=== PATIENT | male | born 1960 | race Caucasian/White ===

== ENCOUNTER → 2017-01-02 | Outpatient (CLI) | payer BC ==
--- NOTE | 2017-01-02 14:09 | ST Modified Barium Swallow ---
Recommendation - Recommendations Recommendations: 1) DIET: Recommend continue current diet. 2) STRATEGIES: dry swallow after liquids, when eating puree consistency alternate bites and sips. SUMMARY: No penetration or aspiraton observed during the study. Pt presents with a mild oropharyngeal dysphagia characterized by weak base of tongue resulting in trace-mild residuals of puree in valleculae and pooling of thin liquids from valleculae to pyriforms. Pt observed to present with throat clear on thin liquids, possibly due to thin residuals in pyriforms. Residuals of thin in pyriforms observed to clear with dry swallow. Residuals of puree in vallecuale observed to clear with alternating bites and sips. Pt provided with swallowing exercise home program. Medical Diagnoses - Medical Diagnoses Medical Diagnosis Description & ICD-10 Code(s): r13.10 Other Medical Diagnoses/Co-Morbidities: bronchitis, reflux - ICD-10 Tx Diagnosis Coding (1) Dysphagia, oropharyngeal phase ICD-10 Code(s): R13.12 - DYSPHAGIA, OROPHARYNGEAL PHASE ST Modified Barium Swallow - General Date: 01/02/17 Referring Physician: Dr Gil Risks/Precautions: None Date of Onset: 08/04/16 Reason for Referral: dysphagia - History History obtained from: Patient -: Medical - Pt reports coughing throughout the day, states initially felt it was due to "sinus issues" however reports had "polyps in sinus and nose removed " and couging did not go away. Pt also states "my lungs are full of congestion" which began in July of 2016. Pt reports bronchitis which he feels has not gone away. Pt states most recent PNA was over 4 years ago. Pt also states any coughing with PO intake "stopped 4 years ago". Pt does report globus sensation in upper chest and reports is on reflux medications. Pt states began reflux medications 6-7 years ago-states prior to meds he would wake up at night to "throw up acid." Pt reports follow a GI in [place]. Medications: pt stated did not have list with him, pt recalls; "blood pressure pill, thyroid pill, sinus medication, reflux medication, metformin, cholesterol medication." Allergies: none reported - Functional Status Prior Functional Status: INDEPENDENT: feeding Current Functional Limitations: feeding - Subjective Patient/caregiver goal(s): safe swallow, r/o aspiration Cognitive-Linguistic Function: WNL Speech Intelligibility: WNL Current Nutritional Means: PO Current PO diet: Regular Current symptoms: Coughing, c/o Globus sensation Pain: 0/5 - Objective Assessment: Upright, Left Lateral - Food Trials Used Food trials used: Thin liquids, Pureed, Regular The patient: Was Able to Self Feed - Oral-Motor Skills Velo-pharyngeal function: Unremarkable Laryngeal Function: Volitional Cough, Volitional Swallow - Assessment Oral prep: Normal Labial closure: Adequate Leakage: None Mastication: Adequate Lingual Movement: Normal Oral stage: Normal for this Procedure - Pharyngeal Stage Initiation of Pharyngeal Stage Reflex: Normal Decreased laryngeal elevation: No Reduced Velopharyngeal Closure: no Reduced pressure generation: Yes - mild reduced tongue-based retraction: Yes - mild Pre-swallow pooling in valleculae: None Pre-Swallow pooling in pyriforms: None Reduced Thyro-Hyoid approximation: No Reduced epiglottic excursion: No Reduced pharyngeal peristalsis/contraction: No Post-swallow residulas vallecular: Mild - trace-mild on puree, pooling of thin Post-Swallow residuals in pyriforms: Mild - pooling of thin - Fall Risk Assessment Medications/Conditions that increase fall risks include: Antidepressants, sedatives, anti-arrhythmic, diuretic, benzodiazipenes, neuroleptics. BP regulation problems, cardiac problems, balance or gait deficits, neurological problems. Is patient considered at risk for falls: no Fall Risk Actions Taken: No action needed - Behavioral Observations During evaluation process patient: was pleasant, was cooperative, able to answer questions, provided medical history - Treatment / Educational Needs: Treatment/Education Needs: Treatment consisted of patient education on the role of the Speech Pathologist. Patient's plan of care and golas were communicated as well as scheduling and attendance policies. Recommendations for initial home program were shared. Patient demonstrated understanding and verbalized agreement. Initial home program recommendations: Pt provided with writen and verbal education on dysphagia, reflux precautions, recommendations from study, and swallowing exercises. - Impression/Summary Laryngeal Penetration: No Tracheal Aspiration: no Patient presents with: Oral-Pharyngeal dysph. - mild Risk of Aspiration: Mild - Recommendations NPO: no Solid diet recommendations: Regular Liquid Diet Modification: Thin Pt/Family education and followup with MD: Yes Recommended techniques: Fully Upright During Meal, Alternate Bites/Sips - with purees ; dry swallow after liquids Supervision: Independent Information, Precautions and Recommendations: Patient (Written), Patient (Verbal ) - Time Total Time: 25 - Plan of Care Strategies to optimize patient understanding include:: ongoing assessment of educational needs, implementation of educational strategies, and re-education. - - -: Thank you for the opportunity to work with this patient and his/her family. Should you have any questions about this patient's plan or progress, I can be reached at [phone]. Charge G Code? - - -: No
== END ==
LOC: RAD 07:19
PROVIDERS: ATTEND Internal Medicine Pulmonary Disease
DX: J41.1 Mucopurulent chronic bronchitis (principal); R05 Cough; R13.12 Dysphagia, oropharyngeal phase; K21.9 Gastro-esophageal reflux disease without esophagitis; R93.8 Abnormal findings on diagnostic imaging of other specified body structures
CPT/HCPCS: 71250; 74230

== ENCOUNTER → 2017-01-08 | Outpatient (CLI) | payer BC ==
--- NOTE | 2017-01-02 11:35 | ST Modified Barium Swallow ---
ST Modified Barium Swallow - General Date: 01/02/17 - Fall Risk Assessment Medications/Conditions that increase fall risks include: Antidepressants, sedatives, anti-arrhythmic, diuretic, benzodiazipenes, neuroleptics. BP regulation problems, cardiac problems, balance or gait deficits, neurological problems. - Treatment / Educational Needs: Treatment/Education Needs: Treatment consisted of patient education on the role of the Speech Pathologist. Patient's plan of care and golas were communicated as well as scheduling and attendance policies. Recommendations for initial home program were shared. Patient demonstrated understanding and verbalized agreement. - Plan of Care Strategies to optimize patient understanding include:: ongoing assessment of educational needs, implementation of educational strategies, and re-education. - - -: Thank you for the opportunity to work with this patient and his/her family. Should you have any questions about this patient's plan or progress, I can be reached at [phone]. Charge G Code? - - -: No
--- NOTE | 2017-01-08 14:30 | RADIOLOGY REPORT (SQ) ---
EXAM DESCRIPTION: UPPER GI/SM BOWEL COMPLETED DATE/TIME: 01/08/2017 11:08 am REASON FOR STUDY: GERD (K21.9), DYSPHAGIA (R13.10) R13.10 DYSPHAGIA, UNSPECIFIED K21.9 GASTRO-ESOP HAGEAL REFLUX DISEASE WITHOUT ESOPHAGITIS COMPARISON: None. TECHNIQUE: Under fluoroscopic guidance, patient ingested effervescent granules followed by thick an d thin barium. Fluoroscopic spot images and routine radiographic images acquired and stored on PACS . Following evaluation of esophagus and stomach, additional barium administered with serial delayed ab dominal radiographs until colonic identification. Fluoroscopic images recorded of the terminal ileu m. 12 MM BARIUM TABLET GIVEN: The patient swallowed a 12 mm barium tablet which passed easily through th e esophagus into the stomach without delay. FLUOROSCOPY TIME: 3.9 minutes 18 images saved to PACS. LIMITATIONS: None. FINDINGS: NEUROMUSCULAR COORDINATION OF SWALLOW: Normal. No aspiration. ESOPHAGEAL MOTILITY: Normal peristalsis. No esophageal spasm. ESOPHAGEAL MUCOSA: There is a moderately sized outpouching extending superiorly from the posterior hy popharynx region, possibly representing diverticulum. This is seen on prone drinking films. Clinica l correlation and possible upper endoscopy recommended. GASTRO-ESOPHAGEAL JUNCTION: No hiatal hernia identified. Significant gastroesophageal reflux seen, w ith barium refluxing to the lower cervical region. STOMACH: Normal without masses or ulcerations. GASTRIC OUTLET: No delay in emptying. Normal pylorus. DUODENAL BULB: Normal distention. No spasm or ulceration. DUODENUM: Mucosa normal. No extrinsic masses or malrotation. PROXIMAL SMALL BOWEL: Normal as visualized. JEJUNUM: Normal mucosal pattern. No dilatation, segmentation, strictures or masses. ILEUM: Normal mucosal pattern. No dilatation, segmentation, strictures or masses. TERMINAL ILEUM AND ILEO-CECAL VALVE: Normal mucosal pattern without cobble-stoning or stricture. Nor mal compression. PROXIMAL COLON: Incompletely imaged. No abnormality. NON-GI TRACT STRUCTURES: No significant finding. OTHER: No other significant finding. IMPRESSION: Outpouching in the posterior hypopharynx region possibly representing diverticulum. Cli nical correlation and possible upper endoscopy recommended. Significant gastroesophageal reflux. Otherwise unremarkable study. COMMENT: None Quality ID [id number]: Final reports for procedures using fluoroscopy that document radiation exposure cesar allie, or exposure time and number of fluorographic images (if radiation exposure indices are not avail able) TECHNICAL DOCUMENTATION: JOB ID: [id number] [employer]- All Rights Reserved
== END ==
LOC: RAD 07:34
PROVIDERS: ATTEND Internal Medicine Pulmonary Disease
DX: R13.10 Dysphagia, unspecified (principal); K21.9 Gastro-esophageal reflux disease without esophagitis
CPT/HCPCS: 74249

== ENCOUNTER → 2017-09-03 | Outpatient (CLI) | payer BC ==
--- NOTE | 2017-09-03 08:06 | RADIOLOGY REPORT (SQ) ---
EXAM DESCRIPTION: CT SINUSES FOR ENT COMPLETED DATE/TIME: 09/03/2017 7:43 am REASON FOR STUDY: *W/FUSION GUIDANCE* CHRONIC SINUSITIS (J32.9) J32.9 CHRONIC SINUSITIS, UNSPECIFIE D COMPARISON: CT of the sinuses 11/10/2013 TECHNIQUE: Noncontrast scanning through the paranasal sinuses using bone algorithm. Reconstructed MPR images reviewed. All images stored on PACS. Images acquired for image guided surgery. All CT scanners at this facility use dose modulation, iterative reconstruction, and/or weight based d osing when appropriate to reduce radiation dose to as low as reasonably achievable (ALARA). [facility]: Dose Right [facility]: CareDose [facility]: Dose Right [facility]: Teradose 4D [facility]: [employer] RADIATION DOSE: 46.2 mGy. FINDINGS: NASAL PASSAGES: Clear. No polyps or masses. OSTEOMEATAL UNITS AND NASOFRONTAL DUCTS: Patent. Surgically widened, best shown on coronal image 149 MAXILLARY SINUSES: Lumpy mucous membrane thickening throughout the inferior and lateral aspect of the right and left maxillary sinus. Maxillary sinus outlets are patent. ETHMOID SINUSES: Post endoscopic sinus surgery with resection of multiple ethmoid septa. There is di ffuse lumpy mucous membrane thickening throughout the residua of the ethmoid cavities SPHENOID SINUSES: Mucous membrane thickening throughout the anterior and inferior aspects of the bila teral sphenoid sinuses. Right sphenoid sinus outlet patent on axial image 82. Left sphenoid sinus o utlet occluded by mucous membrane thickening, axial image 84. There are pneumatized pterygoid recesse s and left anterior clinoid process. No pneumatized dorsal sella. FRONTAL SINUSES: Near completely opacified with mucous membrane thickening. Frontal sinus outlets ar e occluded by mucous membrane thickening on coronal images 126-140. MASTOID AIR CELLS: Clear. ORBITS: Normal and symmetrical. NASAL SEPTUM: Midline. No nasal septal spurs. TEMPOROMANDIBULAR JOINTS: Normal. TURBINATES: Middle terminates have been resected OTHER: No other significant findings. IMPRESSION: Post prior endoscopic sinus surgery with recurrent lumpy mucous membrane thickening thro ughout the paranasal sinuses. TECHNICAL DOCUMENTATION: JOB ID: [id number] Quality ID # [id number]: Final reports with documentation of one or more dose reduction techniques (e.g., Au tomated exposure control, adjustment of the mA and/or kV according to patient size, use of iterative reconstruction technique) 2010 [email or web address]- All Rights Reserved
== END ==
LOC: RAD 07:26
PROVIDERS: ATTEND Otolaryngology
DX: J32.9 Chronic sinusitis, unspecified (principal)
CPT/HCPCS: 70486

== ENCOUNTER → 2017-09-03 | Outpatient (CLI) | payer BC | LOC: OD 08:05 | PROVIDERS: ATTEND Otolaryngology | DX: J32.9 Chronic sinusitis, unspecified (principal) | CPT/HCPCS: 36415 ==